=== PATIENT | male | born 1985 | race Caucasian/White ===

== ENCOUNTER 2020-09-03 19:59 | Emergency (ER) | payer MEDICAID, SELFPAY ==
[2020-09-03 20:01] VITALS: BP 158/85; PULSE 100; RESP 16; TEMP 36.6; O2SAT 96; BMI 24.3
--- NOTE | 2020-09-03 21:11 | ED_ITS ---
HPI - Extremity Problem General Chief complaint: Extremity Problem Stated complaint: Feet swelling Time Seen by Provider: 09/03/20 22:19 Source: patient Mode of arrival: ambulatory Limitations: no limitations History of Present Illness HPI Narrative: 35-year-old male on Suboxone presents with bilateral lower extremity edema to the ankles with Bilateral foot pain. He has been working 14-16 hour days and has been standing throughout the duration of his working hours, states that he has been working 6 or 7 days a week and has very few days off. He noted that the swelling started when his work picked up Requiring him to 6 or more days and 14-16 hours per day. He does report using alcohol excessively on a daily basis. MD Complaint: extremity pain Onset (ago): week(s) ( Several) Pain Consistency: constant Severity scale (1-10): 8 Quality: aching Radiation: none Relieving factors: elevation Exacerbating factors: walking Associated symptoms: denies other symptoms Related Data Previous Rx's Medication Instructions Recorded furosemide [Lasix] 20 mg PO DAILY PRN #30 tab 09/03/20 Allergies Allergy/AdvReac Type Severity Reaction Status Date / Time bee pollen [BEE STINGS] Allergy Unknown HIVES Unverified 06/14/20 19:27 Review of Systems Review of Systems: Constitutional: No Fever, No Chills ENT/Mouth: No Ear Pain, No Hoarseness, No sore throat Eyes: No Eye Pain, No Swelling, No Redness, No Foreign Body Cardiovascular: No Chest Pain, No SOB Respiratory: No Cough, No Dyspnea Gastrointestinal: No Nausea, No Vomiting, No Diarrhea, No abdominal Pain Genitourinary: No Dysuria, No Hematuria Musculoskeletal: positive joint pain, positive foot and ankle swelling, No Myalgias, No Joint Swelling Skin: No Skin lacerations, No rash Neuro: No Weakness, No Numbness, No Paresthesias, No Loss of Consciousness, No Dizziness, No Headache Psych: No Anxiety/Panic, No Depression Heme/Lymph: no easy bruising, no Lymphadenopathy Endocrine: No Polyuria, No Polydipsia Yes all other systems are reviewed and are negative [facility] Past Medical History Attestation statement: The following information was validated with the patient. Medical History Hepatitis C Social History Social History (Reviewed 09/04/20 @ 01:04 by JAMI Mohamud Smoking Status: Current every day smoker Smoked in Last 30 Days: Yes Use of substances other than those prescribed or required for medical reasons: No Advance Directives: No Advance Directives Information Provided: Yes Physical Exam Vital Signs: Vital Signs: Last Vital Signs Temp 98.5 F 09/03/20 22:54 Pulse 88 09/03/20 22:54 Resp 16 09/03/20 22:54 BP 158/92 H 09/03/20 22:54 Pulse Ox 97 09/03/20 22:54 Body Mass Index 24.3 Appearance: Alert. Oriented X3. No acute distress. Eyes: Pupils equal, round and reactive to light. ENT: Pharynx normal. Neck: Normal inspection. Neck supple. CVS: Normal heart rate and rhythm. Pulses normal. Respiratory: No respiratory distress. Breath sounds normal. Abdomen: Soft and nontender. Skin: Skin warm and dry. Normal skin color. Normal skin turgor. Extremities: bilateral foot and ankle edema with redness to the toes, brisk capillary refill, Pulses equal bilaterally, no calf pain. Neuro: No motor deficit. No sensory deficit. Course Course Course Narrative: 35-year-old male presents with bilateral foot and ankle swelling, states that he has long hours at work is standing for 14-16 hours per day usually 6 days a week. It is highly unlikely that this is CHF however we will order a BNP, this sounds like more of a dependent edema. He does have a significant alcohol addiction, will order LFTs, lipase, CBC and Chem 7. he does not have any calf pain, states that his last drink was just before arrival. Liver enzymes mildly elevated, detailed discussion regarding seeking detox well received by the patient. He is not ready to go at this time and will take the information and search for a bed when he is ready. CBC indicates mild anemia consistent with EtOH. BNP is 32, albumin 4.4. Swelling has decreased since he has elevated his feet while he was in the emergency department. Plan of care is charge home with [place] and follow up with primary care provider. We did provide information on obtaining primary care. He does understand that he does need follow-up especially if he continues drinking excessively. Patient is thankful. Patient verbalized understanding of and agrees to plan of care discharge home. MDM - Extremity (Nontraumatic) Differential Diagnosis Differential diagnosis: Likely gout and lower extremity edema Medical Records Attestation: I reviewed the patient's medical records. Lab Data Attestation: I reviewed the patient's lab results. Result diagrams: 09/03/20 21:54 09/03/20 21:54 Labs: Lab Results 09/03/20 09/03/20 09/03/20 Range/Units 21:54 21:54 21:54 WBC 7.9 (4.8-10.8) X10*3/uL RBC 3.66 L (4.60-5.80) X10*6/uL Hgb 12.8 L (14.0-18.0) g/dl Hct 37.1 L (42-52) % MCV 101.4 H (80-98) fL MCH 35.0 H (27.0-33.0) pg MCHC 34.5 (31.0-36.0) g/dl RDW 13.3 (11.0-16.0) % Plt Count 233 (160-400) X10*3/uL MPV 9.2 L (9.4-12.4) fL Immature Gran % (Auto) 0.3 (0.0-0.4) % Neut % (Auto) 54.9 (45-73) % Lymph % (Auto) 33.6 (20-40) % [place] % (Auto) 9.0 (2-11) % Eos % (Auto) 1.8 (0-4) % Baso % (Auto) 0.4 (0-2) % Lymph # (Auto) 2.6 (1.2-4.9) X10*3/uL [place] # (Auto) 0.7 (0.1-1.2) X10*3/uL Eos # (Auto) 0.1 (0.0-0.4) X10*3/uL Baso # (Auto) 0.0 (0.0-0.2) X10*3/uL Abs Immat Gran (auto) 0.02 (0.00-0.03) X10*3/uL Absolute Neuts (auto) 4.3 (2.0-8.3) X10*3/uL Absolute Nucleated RBC 0.000 (0.0-0.012) X10*3/uL Nucleated RBC % (auto) 0.0 (0.0-0.2) /100WBC Sodium 141 (135-145) mmol/L Potassium 4.1 (3.3-5.1) mmol/l Chloride 106 (96-108) mmol/L Carbon Dioxide 25 (22-29) mmol/L Anion Gap 14 (12-20) BUN 16 (9-16) mg/dL Creatinine 0.99 (0.5-1.4) mg/dL Estim Creat Clear Calc 118.7 Estimated GFR > 60 Random Glucose 76 (60-115) mg/dL Calcium 8.7 (8.4-10.2) mg/dL Magnesium 2.1 (1.6-2.6) mg/dL Total Bilirubin (0.0-1.0) mg/dL Direct Bilirubin (0.0-0.5) mg/dL AST (5-37) U/L ALT (0-40) U/L Alkaline Phosphatase (39-117) U/L B-Natriuretic Peptide 32 (<100) pg/mL Total Protein (6.5-8.0) g/dL Albumin (3.5-5.0) g/dL Lipase (8-78) U/L 09/03/20 Range/Units 21:54 WBC (4.8-10.8) X10*3/uL RBC (4.60-5.80) X10*6/uL Hgb (14.0-18.0) g/dl Hct (42-52) % MCV (80-98) fL MCH (27.0-33.0) pg MCHC (31.0-36.0) g/dl RDW (11.0-16.0) % Plt Count (160-400) X10*3/uL MPV (9.4-12.4) fL Immature Gran % (Auto) (0.0-0.4) % Neut % (Auto) (45-73) % Lymph % (Auto) (20-40) % [place] % (Auto) (2-11) % Eos % (Auto) (0-4) % Baso % (Auto) (0-2) % Lymph # (Auto) (1.2-4.9) X10*3/uL [place] # (Auto) (0.1-1.2) X10*3/uL Eos # (Auto) (0.0-0.4) X10*3/uL Baso # (Auto) (0.0-0.2) X10*3/uL Abs Immat Gran (auto) (0.00-0.03) X10*3/uL Absolute Neuts (auto) (2.0-8.3) X10*3/uL Absolute Nucleated RBC (0.0-0.012) X10*3/uL Nucleated RBC % (auto) (0.0-0.2) /100WBC Sodium (135-145) mmol/L Potassium (3.3-5.1) mmol/l Chloride (96-108) mmol/L Carbon Dioxide (22-29) mmol/L Anion Gap (12-20) BUN (9-16) mg/dL Creatinine (0.5-1.4) mg/dL Estim Creat Clear Calc Estimated GFR Random Glucose (60-115) mg/dL Calcium (8.4-10.2) mg/dL Magnesium (1.6-2.6) mg/dL Total Bilirubin 0.2 (0.0-1.0) mg/dL Direct Bilirubin < 0.2 (0.0-0.5) mg/dL AST 87 H (5-37) U/L ALT 108 H (0-40) U/L Alkaline Phosphatase 92 (39-117) U/L B-Natriuretic Peptide (<100) pg/mL Total Protein 7.6 (6.5-8.0) g/dL Albumin 4.4 (3.5-5.0) g/dL Lipase 100 H (8-78) U/L Discharge Plan Discharge Clinical Impression: Lower extremity edema Patient Disposition: Home, Self-Care Instructions: Leg Edema (ED) Additional Instructions: you were evaluated for bilateral foot swelling. This is suspected to be dependent edema. You do report being on her feet 14-16 hours a day on a daily basis. Please use rest and elevation to help decrease swelling. I prescribed Lasix to help you with water reduction. You must follow-up with a primary care physician for further follow through. Your liver enzymes are slightly elevated AST is 87 normal is 05-37, ALT is 108 normal is 0-40, lipase is 100 normal is 8 -78. these enzymes will get better if you stop drinking alcohol. Please consider detox. Thank you for choosing this emergency department for evaluation. Please follow-up with primary care physician as needed. Return to the emergency d epartment for any new, concerning, or worsening symptoms. Prescriptions: New furosemide [Lasix] 20 mg tablet 20 mg PO DAILY PRN (Reason: edema) Qty: 30 RF: 0 Interventions: ED Discharge Assessment Last Done: 09/03/20 23:07 Discharge Date/Time: 09/03/20 23:10
--- NOTE | 2020-09-03 21:22 | ECG_ITS ---
Test Reason : edema Blood Pressure : / mmHG Vent. Rate : 094 BPM Atrial Rate : 094 BPM P-R Int : 146 ms QRS Dur : 098 ms QT Int : 348 ms P-R-T Axes : 069 080 062 degrees QTc Int : 435 ms Normal sinus rhythm Normal ECG When compared with ECG of 07-SEP-2018 03:23, No significant change was found Referred By: Tiara [place] Electronically Signed By:CHINA HARMON
--- NOTE | 2020-09-03 21:22 | XR_ITS ---
EXAMINATION: XR CHEST CLINICAL INFORMATION: Peripheral edema COMPARISON: 09/07/2018 TECHNIQUE: Frontal view of the chest was obtained. FINDINGS: No significant abnormality is noted involving the heart, lungs, mediastinum, bony thorax or soft tissues. XR/XR chest 1V IMPRESSION: Unremarkable examination.
[2020-09-03 22:05] LABS: MANUAL DIFF FLAG NO
[2020-09-03 22:06] LABS: Basophils Percent Auto 0.4 % (0-2); Eosinophils Absolute Auto 0.1 X10*3/uL (0.0-0.4); Eosinophils Percent Auto 1.8 % (0-4); Hematocrit 37.1 % (42-52); Hemoglobin 12.8 g/dl (14.0-18.0); Imm Gran Abs Auto 0.02 X10*3/uL (0.00-0.03); Imm Gran Pct Auto 0.3 % (0.0-0.4); Lymphocytes Absolute Auto 2.6 X10*3/uL (1.2-4.9); Lymphocytes Percent Auto 33.6 % (20-40); Mean Corpuscular HGB Conc 34.5 g/dl (31.0-36.0); Mean Corpuscular Volume 101.4 fL (80-98); Mean Platelet Volume 9.2 fL (9.4-12.4); Monocytes Absolute Auto 0.7 X10*3/uL (0.1-1.2); Neutrophils Absolute Auto 4.3 X10*3/uL (2.0-8.3); Neutrophils Percent Auto 54.9 % (45-73); Platelet Count 233 X10*3/uL (160-400); Red Blood Count 3.66 X10*6/uL (4.60-5.80); Red Cell Distribution Width 13.3 % (11.0-16.0); White Blood Count 7.9 X10*3/uL (4.8-10.8)
[2020-09-03 22:33] LABS: Anion Gap 14 (12-20); Blood Urea Nitrogen 16 mg/dL (9-16); Calcium 8.7 mg/dL (8.4-10.2); Carbon Dioxide 25 mmol/L (22-29); Chloride 106 mmol/L (96-108); Creatinine Clr Calc Pharmacy 118.7; Estimated Glomerular Filt Rate > 60; Glucose Random 76 mg/dL (60-115); Magnesium 2.1 mg/dL (1.6-2.6); Potassium 4.1 mmol/l (3.3-5.1); Sodium 141 mmol/L (135-145)
[2020-09-03 22:37] LABS: Alanine Aminotransferase 108 U/L (0-40); Albumin Level 4.4 g/dL (3.5-5.0); Alkaline Phosphatase 92 U/L (39-117); Aspartate Amino Transferase 87 U/L (5-37); Bilirubin Direct < 0.2 mg/dL (0.0-0.5); Bilirubin Total 0.2 mg/dL (0.0-1.0); Lipase 100 U/L (8-78); Total Protein 7.6 g/dL (6.5-8.0)
[2020-09-03 22:40] LABS: B Type Natriuretic Peptide 32 pg/mL (<100)
[2020-09-03 22:54] VITALS: BP 158/92; PULSE 88; RESP 16; TEMP 36.9; O2SAT 97
== END 2020-09-03 23:10 | disposition home or self-care (01) ==
PROVIDERS: Nurse Practitioner Family; Emergency Provider Internal Medicine
DX: R60.0 Localized edema (principal); M79.672 Pain in left foot; M79.671 Pain in right foot; F11.20 Opioid dependence, uncomplicated; F17.200 Nicotine dependence, unspecified, uncomplicated
CPT/HCPCS: 36415; 71045; 80048; 80076; 83690; 83735; 83880; 85025; 93005; 99283; 99284

== ENCOUNTER 2021-01-17 12:06 | Emergency (ER) | payer OTHER, MEDICAID, SELFPAY ==
--- NOTE | ~2021-01-17 | XR_ITS ---
EXAMINATION: XR FOOT, RIGHT CLINICAL INFORMATION: Fall, trauma, pain COMPARISON: None TECHNIQUE: AP, lateral, and oblique views of the right foot. FINDINGS: There is old appearing healed fracture distal shaft third metatarsal with abundant osseous bridging. There is no visible acute fracture or dislocation or destructive process. Symptom marker pointed to the heel. The retrocalcaneal recess is preserved. The subtalar joint appears normal. There is no visible ankle capsular effusion. There is small posterior calcaneal spur. XR/XR foot RT min 3V IMPRESSION: 1. No acute fracture or dislocation. 2. Small posterior calcaneal spur. 3. Old healed fracture third metatarsal.
--- NOTE | ~2021-01-17 | XR_ITS ---
EXAMINATION: XR RIBS, LEFT CLINICAL INFORMATION: Fall, pain COMPARISON: Chest radiographs 09/03/2020, 09/07/2018 TECHNIQUE: Frontal view chest is performed along with 6 views of the left ribs for a total of 7 views. FINDINGS: There is subtle cortical step off suggestive of a hairline fracture involving the left anterior lateral 7th rib. This may be correlated with patient's symptoms and clinical exam. The remainder of the ribs appear intact. There is no destructive process. The lungs are clear. There is no pneumothorax or pleural reaction. No airspace consolidation or effusion. The heart is normal in size. The hilar and mediastinal contours are unremarkable. No free air beneath the diaphragms. XR/XR ribs LT min 3V w CXR1V IMPRESSION: 1. Suspicious for hairline fracture left anterolateral 7th rib. Recommend correlation with patient's symptoms and clinical exam. 2. Lungs clear. No pneumothorax, pleural reaction, infiltrate, or effusion.
[2021-01-17 12:30] VITALS: BP 161/88; PULSE 89; RESP 16; TEMP 37; O2SAT 97; BMI 25.7
--- NOTE | 2021-01-17 13:29 | ED_ITS ---
HPI - Fall General Chief Complaint: Fall Stated Complaint: fall Time Seen by Provider: 01/17/21 13:19 Source: patient Mode of arrival: ambulatory Limitations: no limitations History of Present Illness HPI Narrative: 35 y male here with multiple complaints s/p fall. patient tells me he was working and on a ladder ~10 feet above the ground when the ladder fell and he fell as well. Believes he might have twisted the right foot in the bottom sprung of the ladder. Now having pain and swelling to right foot. Also c/o left sided rib pain, abrasions to left upper arm. Denies SOB, chest pain. Denies head injury or LOC. MD complaint: fall Related Data Previous Rx's Medication Instructions Recorded furosemide [Lasix] 20 mg PO DAILY PRN #30 tab 09/03/20 cyclobenzaprine 10 mg PO TID PRN #10 tab 01/17/21 lidocaine [Lidoderm] 1 patch TOPICAL DAILY #15 ea 01/17/21 naproxen 500 mg PO BID PRN #20 tab 01/17/21 Allergies Allergy/AdvReac Type Severity Reaction Status Date / Time bee pollen [BEE STINGS] Allergy Unknown HIVES Unverified 06/14/20 19:27 Review of Systems Review of Systems: Yes all other systems are reviewed and are negative Constitutional: Constitutional: Reports no additional constitutional complaints, Denies body ache(s), Denies chills, Denies fever(s), Denies headache(s) and Denies weakness Eyes: Eyes: Reports no additional eye complaints and Denies change in vision ENT: Reports system reviewed and no additional complaints, except as documented, Denies dizziness, Denies headache(s), Denies nasal congestion, Denies nasal discharge and Denies neck pain Cardiovascular: Cardiovascular: Reports no additional cardiovascular complaints, Denies chest pain, Denies leg edema and Denies dyspnea Comments: +rib pain Respiratory: Respiratory: Reports no additional respiratory complaints, Denies cough and Denies dyspnea Gastrointestinal: Gastrointestinal: Reports no additional gastrointestinal c omplaints, Denies abdominal pain, Denies diarrhea, Denies nausea and Denies vomiting Genitourinary: Genitourinary: Denies urinary incontinence Musculoskeletal: Musculoskeletal: Reports no additional musculoskeletal complaints, Denies back pain, Reports arthralgias, Reports joint swelling, Denies neck pain, Denies numbness and Denies tingling Integumentary/Breasts: Skin/Breast: Reports system reviewed and no additional complaints, except as docu and Denies rash Comments: +abrasions Neurologic: Reports system reviewed and no additional complaints, except as documented, Denies Abnormal speech present, Denies dizziness, Denies headache(s), Denies numbness, Denies tingling and Denies weakness PMFSH Past Medical History Medical History Hepatitis C Social History Social History Smoking Status: Current every day smoker Advance Directives: Yes Advance Directives Information Provided: Yes Advance Directives on File: No Physical Exam Vital Signs: Vital Signs: Last Vital Signs Temp 98.6 F 01/17/21 12:30 Pulse 89 01/17/21 12:30 Resp 16 01/17/21 12:30 BP 161/88 H 01/17/21 12:30 Pulse Ox 97 01/17/21 12:30 Body Mass Index 25.7 Const: General: cooperative, healthy appearing, comfortable and no acute distress Orientation/consciousness: patient oriented x3 Limitations: no limitations HENMT: Head: Yes normal to inspection Ears: hearing grossly normal bilaterally General nose exam: Normal external nose present Face and sinus: Yes normal facial exam Mouth: Normal oral and palatal mucosa present Throat: Yes posterior oropharynx normal Eyes: General: appearance normal, both eyes and all related structures Pupils: Equal, round and reactive pupils present Neck: Neck: Yes normal visual inspection Chest: Other: bruising over left lateral ribs with tenderness. no crepitus or deformity. Chest palpation & inspection: normal inspection of the chest Resp: Effort & Inspection: normal respiratory effort Auscultation: clear to auscultation bilaterally Cardio: Rate: regular rate Rhythm: regular rhythm Peripheral pulses: Peripheral pulses 2+ throughout GI: Inspection: Yes normal to inspection Palpation (GI): Soft to palpation and nontender Auscultation: normal bowel sounds Back/Spine/Pelvis: Thoracic/Lumbar Spine: thoracic and lumbar spine normal to inspection Skin: Other: abrasions noted on the inner aspect of the left upper arm and left forearm General skin exam: no rashes or lesions noted Neuro: General: patient oriented x3, no focal motor deficits and normal sensation to monofilament Cranial nerves: Yes Equal, round and reactive pupils present Cognition (Neuro): normal cognition Speech: No Abnormal speech present Gait exam (Neuro): Normal gait present Motor exam (neuro): 5/5 motor strength present throughout Extrem: Other: swelling, ecchymosis and tenderness to the right lateral ankle. No posterior pain. negative hilario sign. FROM General: Yes normal to inspection Course Course Course Narrative: 35 yo male here with multiple complaints s/p fall at work. Will need x-rays. tetanus UTD. X-rays right foot are negative for bony abnormality. Likely sprain. To place post-op shoe and crutches for comfort. Left rib x-rays show a single rib fracture. Will need pain control. Abrasions to LUE, cleansed with NSB, antibiotic ointment and wrapped. FROM LUE with no bony tenderness so imaging deferred. Will refer to work connection. Reviewed worrisome signs/symptoms with patient and when to return to ED. comfortable with discharge home. Procedures Procedure Narrative Procedure Narrative: post-op shoe, crutches with ambulation. MDM - Fall Medical Records Attestation: I reviewed the patient's medical records. Lab Data Attestation: I reviewed the patient's lab results. Imaging Data left rib xray: Attestation: I personally reviewed and interpreted this imaging study as follows: Radiologist's impression: IMPRESSION: 1. Suspicious for hairline fracture left anterolateral 7th rib. Recommend correlation with patient's symptoms and clinical exam. 2. Lungs clear. No pneumothorax, pleural reaction, infiltrate, or effusion. foot xray: Attestation: I personally reviewed and interpreted this imaging study as follows: Radiologist's impression: IMPRESSION: 1. No acute fracture or dislocation. 2. Small posterior calcaneal spur. 3. Old healed fracture third metatarsal. Discharge Plan Discharge Clinical Impression: Abrasion Closed rib fracture Qualifiers: Encounter type: initial encounter Rib fracture type: single rib Laterality: left Qualified Code(s): S22.32XA - Fracture of one rib, left side, initial encounter for closed fracture Foot sprain Qualifiers: Encounter type: initial encounter Laterality: right Qualified Code(s): S93.601A - Unspecified sprain of right foot, initial encounter Patient Disposition: Home, Self-Care Instructions: Rib Fracture (ED), Foot Sprain (ED), Abrasion (ED) Additional Instructions: Ice to the area elevation limit weight bearing on the right foot follow-up with work connection [phone] Prescriptions: New cyclobenzaprine 10 mg tablet 10 mg PO TID PRN (Reason: muscle spasm) Qty: 10 RF: 0 naproxen 500 mg tablet 500 mg PO BID PRN (Reason: pain) Qty: 20 RF: 0 lidocaine [Lidoderm] 5 % adhesive patch,medicated 1 patch topical DAILY Qty: 15 RF: 0 No Action furosemide [Lasix] 20 mg tablet 20 mg PO DAILY PRN (Reason: edema) Qty: 30 RF: 0 Referrals: Physician,None [Primary Care Provider] - 2 days Stand Alone Forms: Work/School Release
== END 2021-01-17 14:05 | disposition home or self-care (01) ==
PROVIDERS: Emergency Provider Emergency Medicine
DX: S22.32XA Fracture of one rib, left side, initial encounter for closed fracture (principal); S93.601A Unspecified sprain of right foot, initial encounter; S40.812A Abrasion of left upper arm, initial encounter; W11.XXXA Fall on and from ladder, initial encounter; Y93.89 Activity, other specified; Y92.63 Factory as the place of occurrence of the external cause; Y99.0 Civilian activity done for income or pay
CPT/HCPCS: 71101; 73630; 99283

== ENCOUNTER 2021-04-01 20:54 | Emergency (ER) | payer MEDICAID, SELFPAY ==
[2021-04-01 21:00] VITALS: BP 150/80; PULSE 90; O2SAT 98
[2021-04-01 21:02] VITALS: BP 149/99; PULSE 89; RESP 18; TEMP 36.6; O2SAT 98; BMI 28.2
--- NOTE | 2021-04-01 21:30 | ED_ITS ---
HPI - Psych General Chief Complaint: Psychiatric Symptoms Stated Complaint: etoh crisis Time Seen by Provider: 04/01/21 21:22 Source: patient Mode of arrival: EMS Limitations: no limitations History of Present Illness HPI Narrative: patient comes by EMS, complaining of suicidal ideation with a plan, and alcohol intoxication. Patient states that he has a new job, he is being of her last minute and his previous job which was not the agreement, made the patient very upset, started drinking. Patient is supposed to take several medications to help his mood, however patient has not been taking it since approximately September. MD complaint: suicidal ideation and feels depressed Related Data Previous Rx's Medication Instructions Recorded furosemide [Lasix] 20 mg PO DAILY PRN #30 tab 09/03/20 cyclobenzaprine 10 mg PO TID PRN #10 tab 01/17/21 lidocaine [Lidoderm] 1 patch TOPICAL DAILY #15 ea 01/17/21 naproxen 500 mg PO BID PRN #20 tab 01/17/21 Allergies Allergy/AdvReac Type Severity Reaction Status Date / Time bee pollen [BEE STINGS] Allergy Unknown HIVES Unverified 06/14/20 19:27 Review of Systems Review of Systems: Constitutional : No Weight loss, No Fever, No Chills, No Night Sweats, No Fatigue, No Malaise ENT/Mouth : No Hearing loss, No Ear Pain, No Nasal Congestion, No Sinus Pain, No Hoarseness, No sore throat, No Rhinorrhea, No Swallowing Difficulty Eyes: No Eye Pain, No Swelling, No Redness, No Foreign Body, No Discharge, No Vision Changes Cardiovascular : No Chest Pain, No SOB, No Dyspnea on Exertion, No Orthopnea, No Edema, No Palpitations Respiratory : No Cough, No Sputum, No Wheezing, No Smoke Exposure, No Dyspnea Gastrointestinal : No Nausea, No Vomiting, No Diarrhea, No Constipation, No abdominal Pain, No Hematochezia, No Melena Genitourinary : no irregular bleeding, No Dysuria, No Urinary Frequency, No Hematuria, No Urinary Incontinence, No Urgency, No Flank Pain, No Urinary Flow Changes, No Hesitancy Musculoskeletal : No joint pain, No Myalgias, No Joint Swelling Skin : No Skin Lesions, No rash Neuro : No Weakness, No Numbness, No Paresthesias, No Loss of Consciousness, No Dizziness, No Headache Psych : Complaining of depression, vague suicidal ideation, stressed by new job with lower income Heme/Lymph: No Bruising, No Bleeding,No Lymphadenopathy Endocrine : No Polyuria, No Polydipsia, No Temperature Intolerance [facility] Past Medical History Medical History Hepatitis C Social History Social History Advance Directives: No Advance Directives Information Provided: Yes Physical Exam Vital Signs: Vital Signs: Last Vital Signs Temp 97.9 F 04/01/21 21:02 Pulse 89 04/01/21 21:02 Resp 18 04/01/21 21:02 BP 149/99 H 04/01/21 21:02 Pulse Ox 98 04/01/21 21:02 Body Mass Index 28.2 Appearance: Alert. Oriented X3. No acute distress. seems intoxicated, calm and cooperative Eyes: Pupils equal, round and reactive to light. ENT: Pharynx normal. Neck: Normal inspection. Neck supple. No lymph nodes noted. No crepitus CVS: Normal heart rate and rhythm. Pulses normal. Normal S1 and S2 Respiratory: No respiratory distress. Breath sounds normal. No Wheezing. No rales Abdomen: Soft and nontender. No rigidity. No distention. Skin: Skin warm and dry. Normal skin color. Normal skin turgor. Extremities: No lower extremity edema. No Lacerations. No Rash Neuro: Oriented X 3. No motor deficit. No sensory deficit. Moving all extermities. No slurred speech. Course Course Course Narrative: labs are pending, then [facility] please see the patient. At this time, patient is intoxicated but stable. Discharge Plan Discharge Prescriptions: No Action cyclobenzaprine 10 mg tablet 10 mg PO TID PRN (Reason: muscle spasm) Qty: 10 RF: 0 naproxen 500 mg tablet 500 mg PO BID PRN (Reason: pain) Qty: 20 RF: 0 lidocaine [Lidoderm] 5 % adhesive patch,medicated 1 patch topical DAILY Qty: 15 RF: 0 furosemide [Lasix] 20 mg tablet 20 mg PO DAILY PRN (Reason: edema) Qty: 30 RF: 0
[2021-04-01 21:49] LABS: MANUAL DIFF FLAG NO
[2021-04-01 21:51] LABS: Basophils Percent Auto 0.4 % (0-2); Eosinophils Absolute Auto 0.2 X10*3/uL (0.0-0.4); Eosinophils Percent Auto 3.1 % (0-4); Hematocrit 39.2 % (42-52); Hemoglobin 13.6 g/dl (14.0-18.0); Imm Gran Abs Auto 0.02 X10*3/uL (0.00-0.03); Imm Gran Pct Auto 0.3 % (0.0-0.4); Lymphocytes Absolute Auto 3.7 X10*3/uL (1.2-4.9); Lymphocytes Percent Auto 50.1 % (20-40); Mean Corpuscular HGB Conc 34.7 g/dl (31.0-36.0); Mean Corpuscular Hemoglobin 32.4 pg (27.0-33.0); Mean Corpuscular Volume 93.3 fL (80-98); Mean Platelet Volume 9.1 fL (9.4-12.4); Monocytes Absolute Auto 0.5 X10*3/uL (0.1-1.2); Monocytes Percent Auto 7.2 % (2-11); Neutrophils Absolute Auto 2.9 X10*3/uL (2.0-8.3); Neutrophils Percent Auto 38.9 % (45-73); Platelet Count 271 X10*3/uL (160-400); Red Cell Distribution Width 13.2 % (11.0-16.0); White Blood Count 7.5 X10*3/uL (4.8-10.8)
[2021-04-01 22:03] LABS: COVID-19 Test Negative (Negative)
[2021-04-01 22:20] LABS: Ethanol 358 mg/dL
[2021-04-01 22:22] LABS: Alanine Aminotransferase 85 U/L (0-40); Albumin Level 4.3 g/dL (3.5-5.0); Alkaline Phosphatase 102 U/L (39-117); Anion Gap 16 (12-20); Aspartate Amino Transferase 84 U/L (5-37); Bilirubin Direct < 0.2 mg/dL (0.0-0.5); Bilirubin Total 0.4 mg/dL (0.0-1.0); Blood Urea Nitrogen 12 mg/dL (9-16); Calcium 8.9 mg/dL (8.4-10.2); Carbon Dioxide 25 mmol/L (22-29); Chloride 107 mmol/L (96-108); Estimated Glomerular Filt Rate > 60; Glucose Random 91 mg/dL (60-115); Magnesium 2.2 mg/dL (1.6-2.6); Sodium 144 mmol/L (135-145); Total Protein 7.5 g/dL (6.5-8.0)
[2021-04-01 22:22] LABS: Amphetamine Screen Urine Not Detected (Not Detect); Barbiturates, Urine Not Detected (Not Detect); Benzodiazepines Screen Urine Not Detected (Not Detect); Cannabinoid Screen Urine POSITIVE (Not Detect); Cocaine Screen Urine Not Detected (Not Detect); Opiate Screen Urine Not Detected (Not Detect); Phencyclidine Screen Urine Not Detected (Not Detect)
--- NOTE | 2021-04-02 00:13 | PC.NURSE ---
Patient appears sleeping at this time, no distress observed/reported, [facility] referral completed via smart-sheet, overnight [facility] clinician Adelina called, confirmed receipt of referral, [place] was made aware patient's BAL level, will continue to monitor.
--- NOTE | 2021-04-02 06:39 | PC.NURSE ---
Patient slept through the night, patient was up once made a phone call to his and asked his disposition, patient was informed that he needs to see [facility] clinician in the morning for assessment and disposition will be decided then, denied distress, will continue to monitor.
[2021-04-02 08:34] VITALS: BP 126/71; PULSE 77; RESP 16; TEMP 36.8; O2SAT 96
--- NOTE | 2021-04-02 10:12 | PC.NURSE ---
Pt sitting in room behind nursing station watching TV. No sign of distress at this time. Respirations even/unlabored bilaterally.
[2021-04-02] MEDS: Buprenorphine/Naloxone 8/2 mg FILM 1 FILM SUBLINGUAL (10:31)
[2021-04-02 12:01] VITALS: BP 141/92; PULSE 82; RESP 18; TEMP 37.1; O2SAT 97
--- NOTE | 2021-04-02 14:06 | MHC.CARE ---
This 36 year-old man who came to [facility] last night by ambulance with reported suicidal ideation, his BAL was 358 at 9:45 pm. CARE Team met with him following medical clearance, he denied suicidal ideation and spoke honestly about his alcohol use. Patient stated that he was upset about a change in his employment contract and got a case of the, Fk-its, and starting drinking 1 ? weeks ago breaking 30+ days of sobriety then quit his job on Thursday. Unable to recall the details of last night due to a black out but believes that he called 911 himself. At this time patient is requesting discharge home, does not want referral to detox although he is likely to have withdrawal symptoms, said that he will definitely drink when he leaves here. Patient lives with his girlfriend of nine years, no children, housing stable currently. He has a history of psychiatric admissions, last several years ago. Was prescribed psychiatric medications one month ago through the [facility] where he sees a counselor but has not taken the medications yet. Recommended that he check in with the MD before he restarts. Call to patient's girlfriend, Tiffany ([phone]), she has no concern about patient's mental health when sober but when intoxicated she stays close to him because his judgment becomes so impaired she worries he may be at risk for intentional or unintentional self-harm. She reported that she and his family are discussing a [address] and will be pursuing one. Provided her with some resources for her own support. Has no objections to him discharging and will pick him up when ready. Patient was referred to Alcoholic Counselor. Disposition to discharge was discussed with providers.
== END 2021-04-02 13:55 | disposition home or self-care (01) ==
PROVIDERS: Nurse Practitioner Family; Emergency Provider Emergency Medicine
DX: F10.129 Alcohol abuse with intoxication, unspecified (principal); Y90.9 Presence of alcohol in blood, level not specified; R45.851 Suicidal ideations; Z91.14 Patient's other noncompliance with medication regimen; Z20.822 Contact with and (suspected) exposure to COVID-19
CPT/HCPCS: 36415; 80048; 80076; 80307; 82077; 83735; 85025; 87635; 99284

== ENCOUNTER 2021-08-05 08:16 | Outpatient (REF) | payer MEDICAID, SELFPAY ==
[2021-08-05 08:43] LABS: COVID-19 Test Positive (Negative)
== END 2021-08-05 08:17 | disposition home or self-care (01) ==
LOC: HO.LAB 08:16
PROVIDERS: Visit Provider Internal Medicine
DX: Z20.822 Contact with and (suspected) exposure to COVID-19 (principal)
CPT/HCPCS: 36415; 87635; C9803

== ENCOUNTER 2021-08-16 09:21 | Outpatient (REF) | payer MEDICAID, SELFPAY ==
[2021-08-16 10:13] LABS: COVID-19 Test Negative (Negative)
== END 2021-08-16 09:22 | disposition home or self-care (01) ==
LOC: HO.LAB 09:21
PROVIDERS: Visit Provider Internal Medicine
DX: Z20.822 Contact with and (suspected) exposure to COVID-19 (principal)
CPT/HCPCS: 36415; 87635; C9803

== ENCOUNTER 2023-03-14 13:02 | Emergency (ER) | payer OTHER, SELFPAY ==
--- NOTE | ~2023-03-14 | CT_ITS ---
EXAMINATION: CT ANGIOGRAM HEAD CT ANGIOGRAM NECK CLINICAL INFORMATION: Worst headache of life, family history of aneurysms COMPARISON: None. TECHNIQUE: Initial noncontrast dressmaker garment fitter imaging of the head and neck was performed. Noncontrast head CT was also performed. Test bolus sequences followed by intravenous administration 70 mL of Omnipaque 350. Helical imaging was performed in the axial plane from the aortic arch to the skull vertex. Delayed postcontrast imaging of the head was also performed. The data was processed at the reliability technologist's workstation for generation of MIP sequences. Angled MIPs and volume rendered reformatted images were also generated at an offline 3D workstation. Stenoses are assessed in accordance with Cam et al. Quantification of Carotid Stenosis on CT Angiography. AJR 2006. 27(1):13-19. [address] CT examination was performed using dose optimization techniques as appropriate, variously including the following: *Automated exposure control *Adjustment of mA and/or kV according to patient size (this includes techniques or standardized protocols for targeted exams where dose is matched to indication/reason for exam; i.e. extremities or head) *Use of iterative reconstruction technique DLP: 2309 mGy-cm FINDINGS: CT HEAD: The ventricles and sulci are normal in size and configuration without significant volume loss or hydrocephalus. There is no abnormal attenuation within the brain parenchyma. No territorial loss of camp-white differentiation. No acute intracranial hemorrhage or extra-axial fluid collection. No mass lesion, significant mass effect, or herniation pattern. No pathologic intra-axial enhancement or regional oligemia. The orbits are grossly normal. Paranasal sinuses and mastoid air cells are well aerated. There is dehiscence of the distal cavernous/supraclinoid carotid canals into the sphenoid sinuses. High riding right jugular bulb and thinning of the right jugular plate for which dehiscence into the hypotympanum is not excluded which can be correlated clinically for signs of right-sided pulsatile tinnitus. CTA HEAD: No hemodynamically significant stenosis or occlusion in the anterior or posterior circulation. Stricture origin of the right posterior inferior cerebellar artery. No aneurysms and no high flow vascular malformations. Timing of the contrast bolus allows assessment of the major dural venous sinuses, which all opacify normally CTA NECK: Ectasia of the ascending aorta up to 4.1 cm. Classic 3 vessel branching pattern of the aortic arch. Origins of the great vessels are widely patent. The common carotid arteries are widely patent. There is mild eccentric fibrofatty plaque and luminal irregularity of the distal right greater than left common carotid arteries/carotid bifurcations without luminal narrowing of the internal carotid artery origins with normal opacification along the remainder of their cervical segments. Eccentric periventricular plaque mildly narrows the left external carotid artery origin. The vertebral arteries are codominant The vertebral artery ostia are widely patent. Both vertebral arteries are widely patent throughout their extracranial cervical course. CT NECK: Carious left second mandibular premolar with prominent periapical lucency. Lobulated soft tissue along the base of tongue, most pronounced on the right projecting into the vallecula and contacting the right lingual surface of the epiglottis probably lingual tonsillar hyperplasia however can be correlated with direct inspection to exclude underlying lesion. Mild centrilobular and paraseptal emphysema with biapical pleural-parenchymal scarring. CT/CT angio head neck IMPRESSION: 1. No acute intracranial findings. Specifically, no aneurysmal distribution subarachnoid hemorrhage. 2. No acute arterial occlusion or hemodynamically significant stenosis within the head or neck. No intracranial saccular aneurysm. 3. Ectasia of the ascending aorta up to 4.1 cm. 4. High riding right jugular bulb and thinning of the right jugular plate for which dehiscence into the hypotympanum is not excluded and can be correlated clinically for signs of right-sided pulsatile tinnitus. 5. Carious left second mandibular premolar with prominent periapical lucency. 6. Suspected lingual tonsillar hyperplasia, more pronounced along the right base of tongue contacting the ventral surface of the epiglottis, which can be correlated with direct inspection to exclude underlying mucosal lesion.
[2023-03-14 13:05] VITALS: BP 138/97; PULSE 91; RESP 16; TEMP 36.6; O2SAT 100; BMI 24.0
--- NOTE | 2023-03-14 13:08 | ED.GENADULT ---
HPI - General Adult General Chief complaint: General Medical Stated complaint: Headache L Side Blurred Vision Time Seen by Provider: 03/14/23 13:20 Related Data Home Medications ?Medication ?Instructions ?Recorded ?Confirmed acamprosate 333 mg tablet,delayed 2 tab PO TID 04/01/21 04/01/21 release buprenorphine 8 mg-naloxone 2 mg 1 strip sublingual DAILY 04/01/21 04/01/21 sublingual film (Suboxone) clonidine HCl 0.2 mg tablet 1 tab PO BEDTIME PRN Anxiety 04/01/21 04/01/21 fluoxetine 10 mg capsule 2 cap PO DAILY 04/01/21 04/01/21 hydroxyzine HCl 25 mg tablet 1 tab PO TID PRN anxiety 04/01/21 04/01/21 Previous Rx's ?Medication ?Instructions ?Recorded yojilehbbf-iessrxlumghok-eqfeffsc 1 cap PO Q8H PRN prn headache #12 03/14/23 50 mg-300 mg-40 mg capsule caps (Fioricet) Allergies Allergy/AdvReac Type Severity Reaction Status Date / Time bee pollen [BEE STINGS] Allergy Intermediate HIVES Verified 03/27/24 15:10 shellfish derived Allergy Intermediate Hives Verified 03/27/24 15:10 [facility] Past Medical History Medical History Hepatitis C Social History Social History Alcohol intake: former Substance Use Type: Marijuana Advance Directives: No Advance Directives Information Provided: Yes Do you have a plan to hurt others: No Plan Physical Exam ED Vital Signs: BMI result Body Mass Index 24.0 Course Course Course Narrative: This is an RME: Additional HPI, ROS, PE not included below will be deferred to primary provider. Patient presents with pressure behind left eye, woke up with worst headache of life . Reports waking up with changes in vision of left eye. Has a family history of aneurysms Medications Administered Discontinued Medications Generic Name Dose Route Start Last Admin Trade Name Freq PRN Reason Stop Dose Admin Iohexol 100 ml 03/14/23 14:12 03/14/23 14:13 Iohexol 350 Mg/Ml 100 Ml Infus..Btl IV 03/14/23 14:13 70 ml ONCE ONE Administration Ketorolac Tromethamine 30 mg 03/14/23 15:11 03/14/23 15:25 Ketorolac Tromethamine 30 Mg/Ml Vial IVPUSH 03/14/23 15:12 30 mg ONCE ONE Administration Medical Decision Making Lab Data 03/14/23 13:39 03/14/23 13:39 Labs: Lab Results 03/14/23 03/14/23 Range/Units 13:39 14:31 WBC 6.7 (4.8-10.8) X10*3/uL RBC 4.35 L (4.60-5.80) X10*6/uL Hgb 13.6 L (14.0-18.0) g/dl Hct 40.2 L (42.0-52.0) % MCV 92.4 (80.0-98.0) fL MCH 31.3 (27.0-33.0) pg MCHC 33.8 (31.0-36.0) g/dl RDW 13.6 (11.0-16.0) % Plt Count 299 (160-400) X10*3/uL MPV 8.6 L (9.4-12.4) fL Immature Gran % (Auto) 0.3 (0.0-0.4) % Neut % (Auto) 56.7 (45-73) % Lymph % (Auto) 35.2 (20-40) % [place] % (Auto) 5.4 (2-11) % Eos % (Auto) 2.1 (0-4) % Baso % (Auto) 0.3 (0-2) % Lymph # (Auto) 2.4 (1.2-4.9) X10*3/uL [place] # (Auto) 0.4 (0.1-1.2) X10*3/uL Eos # (Auto) 0.1 (0.0-0.4) X10*3/uL Baso # (Auto) 0.0 (0.0-0.2) X10*3/uL Abs Immat Gran (auto) 0.02 (0.00-0.03) X10*3/uL Absolute Neuts (auto) 3.8 (2.0-8.3) x10*3/uL Absolute Nucleated RBC 0.000 (0.0-0.012) X10*3/uL Nucleated RBC % (auto) 0.0 (0.0-0.2) /100WBC PT 10.1 (10.0-13.1) SEC INR 0.9 (0.9-1.1) Sodium 143 (135-145) mmol/L Potassium 4.6 (3.3-5.1) mmol/L Chloride 107 (96-108) mmol/L Carbon Dioxide 27 (22-29) mmol/L Anion Gap 14 (12-20) BUN 12 (9-16) mg/dL Creatinine 0.81 (0.5-1.4) mg/dL Estim Creat Clear Calc 140.9 Estimated GFR > 60 Random Glucose 100 (60-115) mg/dL Calcium 10.2 D (8.4-10.2) mg/dL Magnesium 2.3 (1.6-2.6) mg/dL Total Bilirubin 0.6 (0.0-1.0) mg/dL AST 23 (5-37) U/L ALT 33 (0-40) U/L Alkaline Phosphatase 77 (39-117) U/L Total Protein 8.1 H (6.5-8.0) g/dL Albumin 4.6 (3.5-5.0) g/dL Urine Color Yellow Urine Appearance Clear Urine pH 7.5 (5.0-9.0) Ur Specific [place] 1.015 (1.005-1.025) Urine Protein Negative (Neg-Trace) mg/dL Urine Glucose (UA) Negative (Negative) mg/dL Urine Ketones Negative (Negative) mg/dL Urine Blood Negative (Negative) Urine Nitrite Negative (Negative) Ur Leukocyte Esterase Negative (Negative) Discharge Plan Discharge Clinical Impression: Headache Patient Disposition: Home, Self-Care Instructions: General Headache (ED) Additional Instructions: Your lab work and imaging are reassuring. You decline LP at this time. Please return to the ED if symptoms worsen. Please follow up with your PCP. We will provide you with contact information for neurology follow up. Prescriptions: New bstjvzvilh-txuvbkslecyob-wxgd [Fioricet] 50-300-40 mg capsule 1 cap PO Q8H PRN (Reason: prn headache) Qty: 12 0RF No Action clonidine HCl 0.2 mg tablet 1 tab PO BEDTIME PRN (Reason: Anxiety) fluoxetine 10 mg capsule 2 cap PO DAILY hydroxyzine HCl 25 mg tablet 1 tab PO TID PRN (Reason: anxiety) acamprosate 333 mg tablet,delayed release (DR/EC) 2 tab PO TID buprenorphine-naloxone [Suboxone] 8-2 mg film 1 strip sublingual DAILY Referrals: Erica Juarez MD [Physician] - 3 days Interventions: ED Discharge Assessment Last Done: 03/14/23 15:50 Discharge Date/Time: 03/14/23 15:52 Print Language: Portuguese
--- NOTE | 2023-03-14 13:20 | ED.HA ---
HPI - Headache General Chief Complaint: General Medical Stated Complaint: Headache L Side Blurred Vision Time Seen by Provider: 03/14/23 13:20 Source: patient Mode of arrival: ambulatory Limitations: no limitations History of Present Illness HPI Narrative: 38 year old male with history signficiant for opioid use disorder on suboxone and etoh use disorder (recovering) presents today with complaint of a left sided headache. Patient reports seeing shooting stars in his left eye yesterday followed by blurred vision that resolved last night. He reports waking up at 0400 this morning with a left sided headache characterized by pressure behind his left eye along with nausea without vomiting. This has since subsided and the patient reports feeling better. His girlfriend at bedside states that the patient complains of headaches daily\. His mother and maternal grandmother both from brain aneurysms. Denies fever, neck pain/ stiffness, vomiting. Related Data Home Medications Medication Instructions Recorded Confirmed acamprosate 333 mg tablet,delayed 2 tab PO TID 04/01/21 04/01/21 release buprenorphine 8 mg-naloxone 2 mg 1 strip sublingual DAILY 04/01/21 04/01/21 sublingual film (Suboxone) clonidine HCl 0.2 mg tablet 1 tab PO BEDTIME PRN Anxiety 04/01/21 04/01/21 fluoxetine 10 mg capsule 2 cap PO DAILY 04/01/21 04/01/21 hydroxyzine HCl 25 mg tablet 1 tab PO TID PRN anxiety 04/01/21 04/01/21 Previous Rx's Medication Instructions Recorded zqtfjabxug-zyxipfcwkfyhu-tgiykarp 1 cap PO Q8H PRN prn headache #12 03/14/23 50 mg-300 mg-40 mg capsule caps (Fioricet) Allergies Allergy/AdvReac Type Severity Reaction Status Date / Time bee pollen [BEE STINGS] Allergy Unknown HIVES Verified 03/14/23 13:04 Review of Systems Constitutional: Constitutional: Denies chills, Denies fever(s) and Reports headache(s) Eyes: Eyes: Denies blind spots, Denies blurry vision, Denies change in vision and Denies loss of vision Comments: shooting stars reported in his L eye yesterday which have resolved. ENT: Reports Normal hearing present, Reports headache(s) and Denies neck pain Musculoskeletal: Musculoskeletal: Denies neck pain Neurologic: Reports Normal hearing present, Reports headache(s) and Denies loss of vision [facility] Past Medical History Attestation statement: The following information was validated with the patient. [facility] Narrative: opioid use disorder, etoh use disorder (recovering) Source: old records reviewed Medical History Hepatitis C Social History Social History Alcohol intake: former Smoked in Last 30 Days: Yes Use of substances other than those prescribed or required for medical reasons: Yes Substance Use Type: Marijuana Substance Use Type Other:: benzo Substance Use Frequency: Monthly Advance Directives: No Advance Directives Information Provided: Yes Physical Exam Vital Signs: Vital Signs: Last Vital Signs Temp 98.4 F 03/14/23 13:21 Pulse 107 H 03/14/23 14:00 Resp 18 03/14/23 14:00 BP 137/92 H 03/14/23 14:00 Pulse Ox 98 03/14/23 14:00 O2 Del Method Room Air 03/14/23 14:00 BMI result Body Mass Index 24.0 Const: General: cooperative, healthy appearing, comfortable, no acute distress, alert and awake Nutritional Appearance: average body habitus Orientation/consciousness: oriented to person, oriented to place and oriented to time Limitations: no limitations HEENT: Head: Yes normal to inspection Face and sinus: Yes normal facial exam Eyes: General: appearance normal, both eyes and all related structures Pupils: Equal, round and reactive pupils present, Pupils normal by confrontation, pupils equal, not dilated, not fixed and regular EOM: EOMs intact bilaterally Direct Ophthalmoscopy: no photophobia Neck: Neck: Yes full ROM, Yes no meningeal signs and Yes supple Resp: Effort & Inspection: normal respiratory effort Auscultation: clear to auscultation bilaterally Cardio: Rate: regular rate Rhythm: regular rhythm Heart sounds: S1 normal heart sound present, S2 normal heart sound present, no gallops, no murmurs and no rubs GI: Palpation (GI): Soft to palpation, not firm, nontender, no guarding and not rigid Neuro: General: oriented to person, oriented to place, oriented to time and no meningeal signs Cranial nerves: Yes CN's II-XII intact bilaterally, Yes Facial sensation intact/muscles of mastication intact, Yes Equal, round and reactive pupils present, Yes Bilaterally intact EOM present, Yes Nystagmus not present, Yes Normal facial strength present, Yes Midline tongue present, Yes Normal hearing present and Yes Ability to bilaterally rotate head present Cognition (Neuro): normal cognition Gait exam (Neuro): Normal gait present Motor exam (neuro): 5/5 motor strength present throughout Course Reevaluation(s) Reevaluation #1: Patient remains stable, comfortable, no acute distress. CTA of head discussed with patient and his significant other. No aneurysm. Shared decision making regarding LP, patient elected not to go ahead with the LP at this time. [place] headache unlikely however patient declines LP at this time. Time: 15:11 Medications Administered Discontinued Medications Generic Name Dose Route Start Last Admin Trade Name Prashantq PRN Reason Stop Dose Admin Iohexol 100 ml 03/14/23 14:12 03/14/23 14:13 Iohexol 350 Mg/Ml 100 Ml Infus..Btl IV 03/14/23 14:13 70 ml ONCE ONE Administration Ketorolac Tromethamine 30 mg 03/14/23 15:11 03/14/23 15:25 Ketorolac Tromethamine 30 Mg/Ml Vial IVPUSH 03/14/23 15:12 30 mg ONCE ONE Administration Medical Decision Making Medical Decision Making [facility] Narrative: 38 year old male presenting with acute onset headache which woke him from his sleep at 0400 this morning. Patient states his left-sided headache has now subsided and he is no longer nauseous. Physical exam within normal limits, no meningeal signs, CN 2-12 intact. Differential Diagnosis Differential Diagnoses: The differential diagnosis associated with the presentation includes Migraine headache, chronic headache Due to patients family history of aneurysm, this will be ruled out with CT head. Unlikely meningitis as patient is afebrile without meningeal signs. Lab Data [facility] Lab Attestation statement: I reviewed the patient's lab results. 03/14/23 13:39 03/14/23 13:39 Labs: Lab Results 03/14/23 03/14/23 03/14/23 Range/Units 13:39 13:39 13:39 WBC 6.7 (4.8-10.8) X10*3/uL RBC 4.35 L (4.60-5.80) X10*6/uL Hgb 13.6 L (14.0-18.0) g/dl Hct 40.2 L (42.0-52.0) % MCV 92.4 (80.0-98.0) fL MCH 31.3 (27.0-33.0) pg MCHC 33.8 (31.0-36.0) g/dl RDW 13.6 (11.0-16.0) % Plt Count 299 (160-400) X10*3/uL MPV 8.6 L (9.4-12.4) fL Immature Gran % (Auto) 0.3 (0.0-0.4) % Neut % (Auto) 56.7 (45-73) % Lymph % (Auto) 35.2 (20-40) % [place] % (Auto) 5.4 (2-11) % Eos % (Auto) 2.1 (0-4) % Baso % (Auto) 0.3 (0-2) % Lymph # (Auto) 2.4 (1.2-4.9) X10*3/uL [place] # (Auto) 0.4 (0.1-1.2) X10*3/uL Eos # (Auto) 0.1 (0.0-0.4) X10*3/uL Baso # (Auto) 0.0 (0.0-0.2) X10*3/uL Abs Immat Gran (auto) 0.02 (0.00-0.03) X10*3/uL Absolute Neuts (auto) 3.8 (2.0-8.3) x10*3/uL Absolute Nucleated RBC 0.000 (0.0-0.012) X10*3/uL Nucleated RBC % (auto) 0.0 (0.0-0.2) /100WBC PT 10.1 (10.0-13.1) SEC INR 0.9 (0.9-1.1) Sodium 143 (135-145) mmol/L Potassium 4.6 (3.3-5.1) mmol/L Chloride 107 (96-108) mmol/L Carbon Dioxide 27 (22-29) mmol/L Anion Gap 14 (12-20) BUN 12 (9-16) mg/dL Creatinine 0.81 (0.5-1.4) mg/dL Estim Creat Clear Calc 140.9 Estimated GFR > 60 Random Glucose 100 (60-115) mg/dL Calcium 10.2 D (8.4-10.2) mg/dL Magnesium 2.3 (1.6-2.6) mg/dL Total Bilirubin 0.6 (0.0-1.0) mg/dL AST 23 (5-37) U/L ALT 33 (0-40) U/L Alkaline Phosphatase 77 (39-117) U/L Total Protein 8.1 H (6.5-8.0) g/dL Albumin 4.6 (3.5-5.0) g/dL Urine Color Urine Appearance Urine pH (5.0-9.0) Ur Specific [place] (1.005-1.025) Urine Protein (Neg-Trace) mg/dL Urine Glucose (UA) (Negative) mg/dL Urine Ketones (Negative) mg/dL Urine Blood (Negative) Urine Nitrite (Negative) Ur Leukocyte Esterase (Negative) 03/14/23 Range/Units 14:31 WBC (4.8-10.8) X10*3/uL RBC (4.60-5.80) X10*6/uL Hgb (14.0-18.0) g/dl Hct (42.0-52.0) % MCV (80.0-98.0) fL MCH (27.0-33.0) pg MCHC (31.0-36.0) g/dl RDW (11.0-16.0) % Plt Count (160-400) X10*3/uL MPV (9.4-12.4) fL Immature Gran % (Auto) (0.0-0.4) % Neut % (Auto) (45-73) % Lymph % (Auto) (20-40) % [place] % (Auto) (2-11) % Eos % (Auto) (0-4) % Baso % (Auto) (0-2) % Lymph # (Auto) (1.2-4.9) X10*3/uL [place] # (Auto) (0.1-1.2) X10*3/uL Eos # (Auto) (0.0-0.4) X10*3/uL Baso # (Auto) (0.0-0.2) X10*3/uL Abs Immat Gran (auto) (0.00-0.03) X10*3/uL Absolute Neuts (auto) (2.0-8.3) x10*3/uL Absolute Nucleated RBC (0.0-0.012) X10*3/uL Nucleated RBC % (auto) (0.0-0.2) /100WBC PT (10.0-13.1) SEC INR (0.9-1.1) Sodium (135-145) mmol/L Potassium (3.3-5.1) mmol/L Chloride (96-108) mmol/L Carbon Dioxide (22-29) mmol/L Anion Gap (12-20) BUN (9-16) mg/dL Creatinine (0.5-1.4) mg/dL Estim Creat Clear Calc Estimated GFR Random Glucose (60-115) mg/dL Calcium (8.4-10.2) mg/dL Magnesium (1.6-2.6) mg/dL Total Bilirubin (0.0-1.0) mg/dL AST (5-37) U/L ALT (0-40) U/L Alkaline Phosphatase (39-117) U/L Total Protein (6.5-8.0) g/dL Albumin (3.5-5.0) g/dL Urine Color Yellow Urine Appearance Clear Urine pH 7.5 (5.0-9.0) Ur Specific [place] 1.015 (1.005-1.025) Urine Protein Negative (Neg-Trace) mg/dL Urine Glucose (UA) Negative (Negative) mg/dL Urine Ketones Negative (Negative) mg/dL Urine Blood Negative (Negative) Urine Nitrite Negative (Negative) Ur Leukocyte Esterase Negative (Negative) Independent Interpretation I performed an independent interpretation of an: CT Scan Interpretation: CTA reviwed personally. Radiology Impression Discussion of test interpretation with radiology: I have reviewed the radiologist's reading. Radiologist Impression: No evidence of aneurysm per radiologist. Independent Historian Clinical information obtained from an independent historian. History obtained from or confirmed by: Other (significant other.) Prescription Management I considered prescription management with: Pain Medication (fioricet) Chronic Conditions Patient?s care impacted by: Other (hep C, opioid use disorder, etoh use disorder) Discharge Plan Discharge Clinical Impression: Headache Patient Disposition: Home, Self-Care Instructions: General Headache (ED) Additional Instructions: Your lab work and imaging are reassuring. You decline LP at this time. Please return to the ED if symptoms worsen. Please follow up with your PCP. We will provide you with contact information for neurology follow up. Prescriptions: New ynmauiimya-pnckjxgiqxlou-rnhf [Fioricet] 50-300-40 mg capsule 1 cap PO Q8H PRN (Reason: prn headache) Qty: 12 0RF No Action clonidine HCl 0.2 mg tablet 1 tab PO BEDTIME PRN (Reason: Anxiety) fluoxetine 10 mg capsule 2 cap PO DAILY hydroxyzine HCl 25 mg tablet 1 tab PO TID PRN (Reason: anxiety) acamprosate 333 mg tablet,delayed release (DR/EC) 2 tab PO TID buprenorphine-naloxone [Suboxone] 8-2 mg film 1 strip sublingual DAILY Referrals: Erica Juarez MD [Physician] - 3 days
[2023-03-14 13:21] VITALS: BP 145/96; PULSE 112; RESP 18; TEMP 36.9; O2SAT 99
--- NOTE | 2023-03-14 13:30 | PC.NURSE ---
Alert and oriented. Was at work yesterday when all of the sudden he had a sharp shooting bright light in let eye. States it was the thickness of a few pieces of hair states light went away but it took about 4 hours before eye sight when back to normal. PERRLA. States woke up today with a headache but does have hx of almost daily headaches. States family hx of brain aneurysms, provider aware.
[2023-03-14 13:45] LABS: MANUAL DIFF FLAG NO
[2023-03-14 13:46] LABS: Basophils Percent Auto 0.3 % (0-2); Eosinophils Absolute Auto 0.1 X10*3/uL (0.0-0.4); Eosinophils Percent Auto 2.1 % (0-4); Hematocrit 40.2 % (42.0-52.0); Hemoglobin 13.6 g/dl (14.0-18.0); Imm Gran Abs Auto 0.02 X10*3/uL (0.00-0.03); Imm Gran Pct Auto 0.3 % (0.0-0.4); Lymphocytes Absolute Auto 2.4 X10*3/uL (1.2-4.9); Lymphocytes Percent Auto 35.2 % (20-40); Mean Corpuscular HGB Conc 33.8 g/dl (31.0-36.0); Mean Corpuscular Hemoglobin 31.3 pg (27.0-33.0); Mean Corpuscular Volume 92.4 fL (80.0-98.0); Mean Platelet Volume 8.6 fL (9.4-12.4); Monocytes Absolute Auto 0.4 X10*3/uL (0.1-1.2); Monocytes Percent Auto 5.4 % (2-11); Neutrophils Absolute Auto 3.8 x10*3/uL (2.0-8.3); Neutrophils Percent Auto 56.7 % (45-73); Platelet Count 299 X10*3/uL (160-400); Red Blood Count 4.35 X10*6/uL (4.60-5.80); Red Cell Distribution Width 13.6 % (11.0-16.0); White Blood Count 6.7 X10*3/uL (4.8-10.8)
[2023-03-14 13:54] LABS: INTERNATIONAL NORM RATIO 0.9 (0.9-1.1); Prothrombin Time 10.1 SEC (10.0-13.1)
[2023-03-14 14:00] VITALS: BP 137/92; PULSE 107; RESP 18; O2SAT 98
[2023-03-14 14:04] LABS: Alanine Aminotransferase 33 U/L (0-40); Albumin Level 4.6 g/dL (3.5-5.0); Alkaline Phosphatase 77 U/L (39-117); Anion Gap 14 (12-20); Aspartate Amino Transferase 23 U/L (5-37); Bilirubin Total 0.6 mg/dL (0.0-1.0); Blood Urea Nitrogen 12 mg/dL (9-16); Calcium 10.2 mg/dL (8.4-10.2); Carbon Dioxide 27 mmol/L (22-29); Chloride 107 mmol/L (96-108); Creatinine Clr Calc Pharmacy 140.9; Estimated Glomerular Filt Rate > 60; Glucose Random 100 mg/dL (60-115); Magnesium 2.3 mg/dL (1.6-2.6); Potassium 4.6 mmol/L (3.3-5.1); Sodium 143 mmol/L (135-145); Total Protein 8.1 g/dL (6.5-8.0)
[2023-03-14] MEDS: iohexoL 350 MG/ML 100 ML INFUS..BTL IV (14:13)
[2023-03-14 14:37] LABS: Appearance Urine Clear; Color Urine Yellow; Glucose Urine UA Negative (Negative); Leukocyte Esterase Urine Negative (Negative); Nitrite Urine Negative (Negative); PH 7.5 (5.0-9.0); Specific Gravity - Urine 1.015 (1.005-1.025); Urine Blood Negative (Negative); Urine Ketones Negative (Negative); Urine Protein Negative (Neg-Trace)
[2023-03-14] MEDS: Ketorolac Tromethamine 30 MG/ML VIAL IVPUSH (15:25)
--- NOTE | 2023-03-14 15:52 | PC.NURSE ---
Patient reports feeling much better. Discharge plan reviewed with patient and significant other, both verbalized understanding
== END 2023-03-14 15:52 | disposition home or self-care (01) ==
PROVIDERS: Physician Assistant; Emergency Provider Emergency Medicine
DX: R51.9 Headache, unspecified (principal); B19.20 Unspecified viral hepatitis C without hepatic coma; F12.90 Cannabis use, unspecified, uncomplicated; F11.20 Opioid dependence, uncomplicated; Z79.899 Other long term (current) drug therapy
CPT/HCPCS: 36415; 70496; 70498; 80053; 81003; 83735; 85025; 85610; 96374; 99284; J1885; Q9967

== ENCOUNTER 2024-03-27 14:22 | Emergency (ER) | payer SELFPAY ==
--- NOTE | ~2024-03-27 | XR_ITS ---
EXAMINATION: X-ray right ankle X-ray right foot CLINICAL INFORMATION: Injury, pain COMPARISON: X-ray 01/17/2021 TECHNIQUE: Ankle 2 views. Foot 2 views. FINDINGS: Ankle: No visible acute fracture or dislocation. Ankle mortise is maintained. Talar dome appears intact. Bony alignment is anatomic. Foot: Alignment is anatomic. Remote healed third metatarsal shaft fracture. No visible acute fracture or malalignment. Tarsometatarsal alignment is maintained. Os peroneum. Small posterior calcaneal spur. No abnormal soft tissue calcification. XR/XR foot RT 2V IMPRESSION: No radiographic evidence of acute fracture, malalignment or dislocation. If there are persistent symptoms, recommend follow-up imaging. Remote healed third metatarsal fracture.
--- NOTE | ~2024-03-27 | XR_ITS ---
EXAMINATION: X-ray right ankle X-ray right foot CLINICAL INFORMATION: Injury, pain COMPARISON: X-ray 01/17/2021 TECHNIQUE: Ankle 2 views. Foot 2 views. FINDINGS: Ankle: No visible acute fracture or dislocation. Ankle mortise is maintained. Talar dome appears intact. Bony alignment is anatomic. Foot: Alignment is anatomic. Remote healed third metatarsal shaft fracture. No visible acute fracture or malalignment. Tarsometatarsal alignment is maintained. Os peroneum. Small posterior calcaneal spur. No abnormal soft tissue calcification. XR/XR ankle RT 2V IMPRESSION: No radiographic evidence of acute fracture, malalignment or dislocation. If there are persistent symptoms, recommend follow-up imaging. Remote healed third metatarsal fracture.
[2024-03-27 15:06] VITALS: BP 136/100; PULSE 89; RESP 18; TEMP 36.6; O2SAT 100; BMI 23.7
--- NOTE | 2024-03-27 15:08 | ED.LOWEXIN ---
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 No numbness, tingling or weakness of the extremity. Having pain with WB Related Data Home Medications ?Medication ?Instructions ?Recorded ?Confirmed acamprosate 333 mg tablet,delayed 2 tab PO TID 04/01/21 04/01/21 release buprenorphine 8 mg-naloxone 2 mg 1 strip sublingual DAILY 04/01/21 04/01/21 sublingual film (Suboxone) clonidine HCl 0.2 mg tablet 1 tab PO BEDTIME PRN Anxiety 04/01/21 04/01/21 fluoxetine 10 mg capsule 2 cap PO DAILY 04/01/21 04/01/21 hydroxyzine HCl 25 mg tablet 1 tab PO TID PRN anxiety 04/01/21 04/01/21 Previous Rx's ?Medication ?Instructions ?Recorded wterfqrddm-dafcrbprfouvz-fmewbwfm 1 cap PO Q8H PRN prn headache #12 03/14/23 50 mg-300 mg-40 mg capsule caps (Fioricet) Allergies Allergy/AdvReac Type Severity Reaction Status Date / Time bee pollen [BEE STINGS] Allergy Intermediate HIVES Verified 03/27/24 15:10 shellfish derived Allergy Intermediate Hives Verified 03/27/24 15:10 Review of Systems Review of Systems: Yes all other systems are reviewed and are negative Constitutional: Constitutional: Reports no additional constitutional complaints, Denies body ache(s), Denies chills, Denies fever(s), Denies headache(s) and Denies weakness Eyes: Eyes: Reports no additional eye complaints and Denies change in vision ENT: Reports system reviewed and no additional complaints, except as documented, Denies dizziness, Denies headache(s), Denies nasal congestion, Denies nasal discharge and Denies neck pain Cardiovascular: Cardiovascular: Reports no additional cardiovascular complaints, Denies chest pain, Denies leg edema and Denies dyspnea Respiratory: Respiratory: Reports no additional respiratory complaints, Denies cough and Denies dyspnea Gastrointestinal: Gastrointestinal: Reports no additional gastrointestinal complaints, Denies abdominal pain, Denies diarrhea, Denies nausea and Denies vomiting Genitourinary: Genitourinary: Denies urinary incontinence Musculoskeletal: Musculoskeletal: Reports no additional musculoskeletal complaints, Denies back pain, Reports arthralgias, Reports joint swelling, Denies neck pain, Denies numbness and Denies tingling Integumentary/Breasts: Skin/Breast: Reports system reviewed and no additional complaints, except as docu and Denies rash Neurologic: Reports system reviewed and no additional complaints, except as documented, Denies Abnormal speech present, Denies dizziness, Denies headache(s), Denies numbness, Denies tingling and Denies weakness PMFSH Past Medical History Attestation statement: The following information was validated with the patient. Source: old records reviewed and nursing notes reviewed Medical History Hepatitis C Social History Social History Alcohol intake: former Substance Use Type: Marijuana Physical Exam Vital Signs: Vital Signs: Last Vital Signs Temp 97.9 F 03/27/24 15:06 Pulse 89 03/27/24 15:06 Resp 18 03/27/24 15:06 BP 136/100 H 03/27/24 15:06 Pulse Ox 100 03/27/24 15:06 O2 Del Method Room Air 03/27/24 15:06 BMI result Body Mass Index 23.7 Const: General: cooperative, healthy appearing, comfortable and no acute distress Orientation/consciousness: patient oriented x3 Limitations: no limitations HEENT: Head: Yes normal to inspection Ears: hearing grossly normal bilaterally General nose exam: Normal external nose present Face and sinus: Yes normal facial exam Mouth: Normal oral and palatal mucosa present Throat: Yes posterior oropharynx normal Eyes: General: appearance normal, both eyes and all related structures Pupils: Equal, round and reactive pupils present Neck: Neck: Yes normal visual inspection Chest: Chest palpation & inspection: normal inspection of the chest Resp: Effort & Inspection: normal respiratory effort Auscultation: clear to auscultation bilaterally Cardio: Rate: regular rate Rhythm: regular rhythm Peripheral pulses: Peripheral pulses 2+ throughout GI: Inspection: Yes normal to inspection Palpation (GI): Soft to palpation and nontender Auscultation: normal bowel sounds Back/Spine/Pelvis: Thoracic/Lumbar Spine: thoracic and lumbar spine normal to inspection Skin: General skin exam: no rashes or lesions noted Neuro: General: patient oriented x3, no focal motor deficits and normal sensation to monofilament Cranial nerves: Yes Equal, round and reactive pupils present Cognition (Neuro): normal cognition Speech: No Abnormal speech present Gait exam (Neuro): Normal gait present Motor exam (neuro): 5/5 motor strength present throughout Extrem: Other: Over the right medial heel there is some tenderness and swelling Full active/passive ROM over the ankle, foot and lower leg with no difficulty 2+ DP/PT pulses Normal sensation No posterior ankle pain, negative hilario sign, no ligamental laxity Course Course Course Narrative: This is a rapid medical exam. Deferred additional HPI, ROS, PE to primary provider. 39 yo male with no known medical history here with complaints of right foot pain with radiation up to the calf after stomping heavy this morning on the ground. Will check x-rays -Eda Ventura APRN Reevaluation(s) Reevaluation #1: x-rays show no acute fracture or dislocation. Will place patient in ronen wrap and give crutches for home. reviewed rice, reviewed worrisome signs/symptoms with the patient and when to seek additional care. comfortable with discharge home. 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 No numbness, tingling or weakness of the extremity. Having pain with WB Over the right medial heel there is some tenderness and swelling Full active/passive ROM over the ankle, foot and lower leg with no difficulty 2+ DP/PT pulses Normal sensation No posterior ankle pain, negative hilario sign, no ligamental laxity Will check x-rays Differential Diagnosis Differential Diagnoses: The differential diagnosis associated with the presentation includes sprain, strain, contusion low suspicion for fracture, vascular injury or dislocation Admission/Observation Consideration of admission/observation: Escalation of care including admission/observation considered low suspicion for fracture, vascular injury or dislocation requiring advanced imaging, urgent ortho consult Independent Interpretation I performed an independent interpretation of an: Plain X-Ray Interpretation: I independently reviewed the x-ray and agree with the rad report Radiology Impression Discussion of test interpretation with radiology: I have reviewed the radiologist's reading. Radiologist Impression: Launch?Image [address] [id number] XRay Report Signed Patient: Gregorio Montoya MR#: [id number] : 1985 Acct:[id number] Age/Sex: 39 / M ADM Date: 03/27/24 Loc: HO.ED Attending Dr: Ordering Physician: Dinorah Arellano NP Date of Service: 03/27/24 Procedure(s): XR ankle RT 2V Accession Number(s): [id number] cc: Physician,None ; Dinorah Arellano NP~ EXAMINATION: X-ray right ankle X-ray right foot CLINICAL INFORMATION: Injury, pain COMPARISON: X-ray 01/17/2021 TECHNIQUE: Ankle 2 views. Foot 2 views. FINDINGS: Ankle: No visible acute fracture or dislocation. Ankle mortise is maintained. Talar dome appears intact. Bony alignment is anatomic. Foot: Alignment is anatomic. Remote healed third metatarsal shaft fracture. No visible acute fracture or malalignment. Tarsometatarsal alignment is maintained. Os peroneum. Small posterior calcaneal spur. No abnormal soft tissue calcification. XR/XR ankle RT 2V IMPRESSION: No radiographic evidence of acute fracture, malalignment or dislocation. If there are persistent symptoms, recommend follow-up imaging. Remote healed third metatarsal fracture. Tests considered The following testing was considered but not selected: low suspicion for fracture, vascular injury or dislocation requiring advanced imaging, Prescription Management I considered prescription management with: Pain Medication Procedures Orthopedic Splinting/Casting Injury #1: Side: right Lower Extremity Injury Location: ankle and foot Lower Extremity Immobilizer: Ronen wrap Other Orthopedic Equipment: crutches Discharge Plan Discharge Clinical Impression: Contusion of foot, right Patient Disposition: Home, Self-Care Instructions: Crutch Instructions (ED), Foot Contusion (ED), R.I.C.E. Treatment (ED) Additional Instructions: Rest, ice, elevation Ronen wrap and crutches for movement Motrin or tylenol for pain as needed Prescriptions: No Action clonidine HCl 0.2 mg tablet 1 tab PO BEDTIME PRN (Reason: Anxiety) fluoxetine 10 mg capsule 2 cap PO DAILY hydroxyzine HCl 25 mg tablet 1 tab PO TID PRN (Reason: anxiety) acamprosate 333 mg tablet,delayed release (DR/EC) 2 tab PO TID buprenorphine-naloxone [Suboxone] 8-2 mg film 1 strip sublingual DAILY njktxsjris-zryueupilimri-nvou [Fioricet] 50-300-40 mg capsule 1 cap PO Q8H PRN (Reason: prn headache) Qty: 12 0RF Referrals: ED Physician,Generic [Physician] - 5 days Stand Alone Forms: Work/School Release Print Language: Maltese
[2024-03-27 16:15] VITALS: BP 136/100; PULSE 89; RESP 18; TEMP 36.6; O2SAT 100
--- NOTE | 2024-03-27 16:15 | PC.NURSE ---
rt ankle juliet wrap applied, crutch training performed
== END 2024-03-27 16:15 | disposition home or self-care (01) ==
PROVIDERS: Emergency Provider Emergency Medicine
DX: S90.31XA Contusion of right foot, initial encounter (principal); S90.01XA Contusion of right ankle, initial encounter; M25.571 Pain in right ankle and joints of right foot; X58.XXXA Exposure to other specified factors, initial encounter; Y93.9 Activity, unspecified; Y92.9 Unspecified place or not applicable; Y99.8 Other external cause status
CPT/HCPCS: 73600; 73620; 99282; 99283

== ENCOUNTER 2025-01-15 16:08 | Emergency (ER) | payer SELFPAY ==
--- NOTE | ~2025-01-15 | XR_ITS ---
CLINICAL HISTORY: cough, bloody sputum 2 view chest x-ray Comparison: None Findings: Heart size is normal. Approximately 2 cm somewhat rounded opacity in left lower lung seen on PA view. Right lung is clear. No pleural effusion or pneumothorax. No acute fracture. IMPRESSION: 1. Approximately 2 cm left lower lung somewhat rounded opacity nonspecific and although could be infectious or inflammatory in etiology possibility of neoplasm not excluded. Follow-up CT chest with contrast is recommended. This document has been electronically signed by: Sari Boyer MD on 01/15/2025 17:27:59
--- NOTE | ~2025-01-15 | CT_ITS ---
CLINICAL HISTORY: hemoptysis ?mass to left lower lobe CT angiography chest with contrast. With MIP MPR Postprocessing. Comparison: None Findings: Multifocal airspace disease predominately in the left lower lobe with consolidation measuring up to 2 cm selectively. Opacities demonstrated predominantly centrilobular distribution. Differential considerations include multifocal pneumonia and small airway disease. Left hilar lymphadenopathy may be reactive with node measuring 1 cm short axis (image number 30 of series 5). No central pulmonary embolism. No aortic dissection. Imaged abdomen is unremarkable. Multilevel Schmorl's nodes, including lower thoracic vertebrae. IMPRESSION: 1. No central pulmonary embolism. 2. Airspace disease most pronounced in the left lower lobe. Differential considerations include pneumonia. Recommend attention on follow-up to ensure resolution. This document has been electronically signed by: Kyaw Cordova MD on 01/15/2025 20:19:32
[2025-01-15 16:11] VITALS: BP 125/90; PULSE 106; RESP 18; TEMP 36.3; O2SAT 97; BMI 21.0
--- NOTE | 2025-01-15 16:13 | ED_ITS ---
HPI - General Adult General Chief complaint: General Medical Stated complaint: coughing up blood Time Seen by Provider: 01/15/25 17:56 Source: patient Mode of arrival: ambulatory Limitations: no limitations History of Present Illness ED Provider: ZIGGY LUQUE PA-C HPI narrative: 39-year-old male with pmhx significant for opioid abuse on Suboxone, ETOH abuse presents to the ED today for evaluation of cough productive of bloody sputum x 1 week. He reports associated chest discomfort x months, associated shortness of breath and two episodes of bilious emesis yesterday. Patient does smoke tobacco. He has a 25 pack year history. He reports recent unintended weight loss, >20 lbs in 1 month. No history of malignancy. No history of VTE. No recent incarceration or TBI exposures. No homelessness. No known sick contacts. Denies fevers, chills, sore throat, palpitations, LE pain/swelling, abd pain, flank pain, urinary sx. Related Data Home Medications ?Medication ?Instructions ?Recorded ?Confirmed acamprosate 333 mg tablet,delayed 2 tab PO TID 04/01/21 04/01/21 release buprenorphine 8 mg-naloxone 2 mg 1 strip sublingual DAILY 04/01/21 04/01/21 sublingual film (Suboxone) clonidine HCl 0.2 mg tablet 1 tab PO BEDTIME PRN Anxiety 04/01/21 04/01/21 fluoxetine 10 mg capsule 2 cap PO DAILY 04/01/21 04/01/21 hydroxyzine HCl 25 mg tablet 1 tab PO TID PRN anxiety 04/01/21 04/01/21 Previous Rx's ?Medication ?Instructions ?Recorded khpjwggipk-vmgmmuyztkgiu-apcmzgva 1 cap PO Q8H PRN prn headache #12 03/14/23 50 mg-300 mg-40 mg capsule caps (Fioricet) amoxicillin 875 mg-potassium 1 tab PO Q12H #13 tabs 01/15/25 clavulanate 125 mg tablet azithromycin 250 mg tablet 250 mg PO DAILY 4 days #4 tabs 01/15/25 Allergies Allergy/AdvReac Type Severity Reaction Status Date / Time bee pollen [BEE STINGS] Allergy Intermediate HIVES Verified 01/15/25 16:17 shellfish derived Allergy Intermediate Hives Verified 03/27/24 15:10 Review of Systems 2 Review of Systems: Yes all other systems are reviewed and are negative PMFSH Past Medical History Attestation statement: The following information was validated with the patient. Source: old records reviewed and nursing notes reviewed Medical History Hepatitis C Social History Social History Alcohol intake: former Smoked in Last 30 Days: Yes Use of substances other than those prescribed or required for medical reasons: No Substance Use Type: Former Substance User Advance Directives: No Advance Directives Information Provided: No Physical Exam ED Vital Signs: Vital Signs - 24 hr 01/15/25 16:11 Temperature 97.4 F Pulse Rate 106 H Respiratory Rate 18 Blood Pressure 125/90 H Pulse Oximetry 97 Oxygen Delivery Method Room Air BMI result Body Mass Index 21.0 hypertensive, tachycardic General: Well appearing, in no acute distress. Skin: Warm, dry, intact. No rashes or lesions. Head: Normocephalic, atraumatic. EENT: Hearing is intact b/l. Conjunctiva clear. PERRLA. EOM intact. Moist mucous membranes.? Neck: Supple without LAD Cardiac: Chest wall symmetric. RRR Lungs: Normal respiratory effort without accessory muscle use. faint wheeze to left lower lung, otherwise clear throughout Abdomen: Soft, non-tender, non-distended. No rebound tenderness or guarding. Positive BS x4. Back: No midline spinous or paraspinal tenderness. No step off deformity. Ext: Upper and lower extremities atraumatic, without tenderness, deformity, swelling or erythema. no pitting edema. no calf tenderness. Neuro: AOx3. Normal speech. Ambulating with steady gait. Psych: Appropriate mood and affect. Responds appropriately to questions. Course Course Course Narrative: This is an RME performed by Maria Fernanda Mary CNP: Additional HPI, ROS, PE not included below will be deferred to primary provider. Patient is a 39-year-old male who presents emergency department for evaluation, states under the weather for 5 days, cough, feverish, cold and hot sweats. Intermittent SOB, intermittent mid chest pain felt while at rest. Endorses this morning having productive cough with phlegm and blood. Reports approximate 20lb unintentional weight loss over the past month. Denies recent incarceration, homelessness, known exposures to TB, history of VTE or malignancy He is an active cigarette smoker. Plan: Viral serologies, CXR, serum lab Reevaluation(s) Reevaluation #1: 1841 -- CBC without leukocytosis or left shift. Normocytic anemia, chronic when compared to priors. H&H stable and above transfusion threshold. Chemistry without acute electrolyte abnormality requiring intervention. No KILLIAN. Liver function WNL. Negative COVID, flu, RSV. Chest x-ray showing approximately 2 cm left lower lung somewhat rounded opacity, nonspecific. Question infectious v inflammatory etiology however neoplasm can not be excluded. > discussed all workup results with patient. Given abnormal chest x-ray, plan for CT angio chest to further differentiate. Patient agreeable. no complaints at this time, no pain. well appearing and hemodynamically stable. Reevaluation #2: patient's CT angiography shows what is most likely pneumonia, neoplasm not entirely excluded. I discussed this with the patient. He has no risk factors for TB. he was not been hypoxic he was mildly tachycardic to 106, he has not been tachypneic. His tachycardia resolved without intervention. he has no comorbidities. He was stable for discharge at this time. we will treat him with azithromycin and Augmentin. I encouraged him to obtain a PCP and have a repeat chest x-ray in about 6 weeks to ensure resolution of the abnormal finding. Time: 20:33 Medications Administered Discontinued Medications Generic Name Dose Route Start Last Admin Trade Name Freq PRN Reason Stop Dose Admin Amoxicillin/Clavulanate Potassium 875 mg 01/15/25 20:34 01/15/25 20:44 Amoxicillin/Potassium Clav 875 Mg Tablet PO 01/15/25 20:35 875 mg ONCE ONE Administration Azithromycin 500 mg 01/15/25 20:34 01/15/25 20:44 Azithromycin 500 Mg Tablet PO 01/15/25 20:35 500 mg ONCE ONE Administration Medical Decision Making Medical Decision Making MDM Narrative: 39-year-old male with pmhx significant for opioid abuse on Suboxone, ETOH abuse presents to the ED today for evaluation of cough productive of bloody sputum x 1 week. Tachycardic to 106, mildly hypertensive. Not hypoxic. Afebrile. He is overall well-appearing and in no acute distress. no tripoding or increased effort of breathing. faint wheeze noted to left lower lung, otherwise clear. rrr. no pitting edema, no calf tenderness. Differential diagnosis includes viral syndrome, bronchitis, pneumonia, malignancy, TB Lower suspicion for PE Screening labs, viral swabs and chest x-ray ordered from triage. Plan to review. Differential Diagnosis Differential Diagnoses: The differential diagnosis associated with the presentation includes as above. Admission/Observation not indicated. Lab Data MDM Lab Attestation statement: I reviewed the patient's lab results. as above. 01/15/25 16:42 01/15/25 16:42 Labs: Lab Results 01/15/25 Range/Units 16:42 WBC 10.1 (4.8-10.8) X10*3/uL RBC 4.16 L (4.60-5.80) X10*6/uL Hgb 12.9 L (14.0-18.0) g/dl Hct 38.4 L (42.0-52.0) % MCV 92.3 (80.0-98.0) fL MCH 31.0 (27.0-33.0) pg MCHC 33.6 (31.0-36.0) g/dl RDW 13.0 (11.0-16.0) % Plt Count 295 (160-400) X10*3/uL MPV 8.8 L (9.4-12.4) fL Immature Gran % (Auto) 0.3 (0.0-0.4) % Neut % (Auto) 60.0 (45-73) % Lymph % (Auto) 32.5 (20-40) % [place] % (Auto) 5.9 (2-11) % Eos % (Auto) 1.1 (0-4) % Baso % (Auto) 0.2 (0-2) % Lymph # (Auto) 3.3 (1.2-4.9) X10*3/uL [place] # (Auto) 0.6 (0.1-1.2) X10*3/uL Eos # (Auto) 0.1 (0.0-0.4) X10*3/uL Baso # (Auto) 0.0 (0.0-0.2) X10*3/uL Abs Immat Gran (auto) 0.03 (0.00-0.03) X10*3/uL Absolute Neuts (auto) 6.1 (2.0-8.3) x10*3/uL Absolute Nucleated RBC 0.000 (0.0-0.012) X10*3/uL Nucleated RBC % (auto) 0.0 (0.0-0.2) /100WBC Sodium 136 (135-145) mmol/L Potassium 4.0 (3.3-5.1) mmol/L Chloride 103 (96-108) mmol/L Carbon Dioxide 24 (22-29) mmol/L Anion Gap 13 (12-20) BUN 8 L (9-16) mg/dL Creatinine 0.68 (0.5-1.4) mg/dL Estim Creat Clear Calc 149.8 Estimated GFR > 60 Random Glucose 92 (60-115) mg/dL Calcium 9.5 D (8.4-10.2) mg/dL Total Bilirubin 0.4 (0.0-1.0) mg/dL AST 19 (5-37) U/L ALT 28 (0-40) U/L Alkaline Phosphatase 74 (39-117) U/L Total Creatine Kinase 60 (38-174) U/L Total Protein 8.1 H (6.5-8.0) g/dL Albumin 4.4 (3.5-5.0) g/dL Influenza Type A (PCR) NEGATIVE (Negative) Influenza Type B (PCR) NEGATIVE (Negative) RSV RNA Qual (PCR) NEGATIVE (Negative) SARS-CoV-2 RNA (RT-PCR) NEGATIVE (Negative) Independent Interpretation I performed an independent interpretation of an: Plain X-Ray Interpretation: cxr showing consolidation to left lower lobe Radiology Impression Discussion of test interpretation with radiology: I have reviewed the radiologist's reading. Radiologist Impression: Procedure(s): XR chest 2V Accession Number(s): [id number] cc: Osiris Mary CNP; Physician,None ~ ADDENDUMThis document has been electronically signed by: Sari Boyer MD on 01/15/2025 17:27:59 ADDENDUM: This report was discussed with YVROSE Maravilla on Jan 15, 2025 17:33:00 EDT. This document has been electronically signed by: Kenzie Ricci on 01/15/2025 17:33:59 Addendum Dictated By: Sari Boyer MD Addendum Signed By: <Electronically signed by Sari Boyer MD in [place]> 01/15/251733 Addendum Cosigned By: DD/ TD/TT: 01/15/25 CLINICAL HISTORY: cough, bloody sputum 2 view chest x-ray Comparison: None Findings: Heart size is normal. Approximately 2 cm somewhat rounded opacity in left lower lung seen on PA view. Right lung is clear. No pleural effusion or pneumothorax. No acute fracture. IMPRESSION: 1. Approximately 2 cm left lower lung somewhat rounded opacity nonspecific and although could be infectious or inflammatory in etiology possibility of neoplasm not excluded. Follow-up CT chest with contrast is recommended. This document has been electronically signed by: Sari Boyer MD on 01/15/2025 17:27:59 Findings: Multifocal airspace disease predominately in the left lower lobe with consolidation measuring up to 2 cm selectively. Opacities demonstrated predominantly centrilobular distribution. Differential considerations include multifocal pneumonia and small airway disease. Left hilar lymphadenopathy may be reactive with node measuring 1 cm short axis (image number 30 of series 5). No central pulmonary embolism. No aortic dissection. Imaged abdomen is unremarkable. Multilevel Schmorl's nodes, including lower thoracic vertebrae. IMPRESSION: 1. No central pulmonary embolism. 2. Airspace disease most pronounced in the left lower lobe. Differential considerations include pneumonia. Recommend attention on follow-up to ensure resolution. This document has been electronically signed by: Kyaw Cordova MD on 01/15/2025 20:19:32 External Record Review External record reviewed: Inpatient record Prescription Management I considered prescription management with: Antibiotic Chronic Conditions Patient?s care impacted by: Other (Opioid abuse, ETOH abuse, tobacco use) Social Determinants Patient?s care significantly limited by Social Determinants of Health including: Alcoholism and drug addiction in family and Other Social Determinant of Health Critical Care Time Critical Care Time Critical Care Time: No Discharge Plan Discharge Clinical Impression: Community acquired pneumonia Patient Disposition: Home, Self-Care Instructions: Community Acquired Pneumonia (ED) Additional Instructions: you had an abnormal x-ray that showed multifocal pneumonia, worse in the left lower lobe the follow-up CT scan confirms this is most likely pneumonia. You do not have any blood clots in your lungs. Take both antibiotics as prescribed I recommend that you get a primary doctor and have a repeat chest x-ray in 6 weeks to ensure resolution of the abnormal findings return for new or worsening symptoms Prescriptions: New azithromycin 250 mg tablet 250 mg PO DAILY 4 Days Qty: 4 0RF Rx Instructions: start on day 2 of therapy amoxicillin-pot clavulanate 875-125 mg tablet 1 tab PO Q12H Qty: 13 0RF No Action clonidine HCl 0.2 mg tablet 1 tab PO BEDTIME PRN (Reason: Anxiety) fluoxetine 10 mg capsule 2 cap PO DAILY hydroxyzine HCl 25 mg tablet 1 tab PO TID PRN (Reason: anxiety) acamprosate 333 mg tablet,delayed release (DR/EC) 2 tab PO TID buprenorphine-naloxone [Suboxone] 8-2 mg film 1 strip sublingual DAILY fxkxdvwslv-zlaxighdwnvoq-zauh [Fioricet] 50-300-40 mg capsule 1 cap PO Q8H PRN (Reason: prn headache) Qty: 12 0RF Interventions: ED Discharge Assessment Last Done: 01/15/25 20:52 Discharge Date/Time: 01/15/25 20:52 Print Language: Amharic
[2025-01-15 16:46] LABS: MANUAL DIFF FLAG NO
[2025-01-15 16:49] LABS: Basophils Percent Auto 0.2 % (0-2); Eosinophils Absolute Auto 0.1 X10*3/uL (0.0-0.4); Eosinophils Percent Auto 1.1 % (0-4); Hematocrit 38.4 % (42.0-52.0); Hemoglobin 12.9 g/dl (14.0-18.0); Imm Gran Abs Auto 0.03 X10*3/uL (0.00-0.03); Imm Gran Pct Auto 0.3 % (0.0-0.4); Lymphocytes Absolute Auto 3.3 X10*3/uL (1.2-4.9); Lymphocytes Percent Auto 32.5 % (20-40); Mean Corpuscular HGB Conc 33.6 g/dl (31.0-36.0); Mean Corpuscular Volume 92.3 fL (80.0-98.0); Mean Platelet Volume 8.8 fL (9.4-12.4); Monocytes Absolute Auto 0.6 X10*3/uL (0.1-1.2); Monocytes Percent Auto 5.9 % (2-11); Neutrophils Absolute Auto 6.1 x10*3/uL (2.0-8.3); Platelet Count 295 X10*3/uL (160-400); Red Blood Count 4.16 X10*6/uL (4.60-5.80); White Blood Count 10.1 X10*3/uL (4.8-10.8)
[2025-01-15 17:00] LABS: Alanine Aminotransferase 28 U/L (0-40); Albumin Level 4.4 g/dL (3.5-5.0); Alkaline Phosphatase 74 U/L (39-117); Anion Gap 13 (12-20); Aspartate Amino Transferase 19 U/L (5-37); Bilirubin Total 0.4 mg/dL (0.0-1.0); Blood Urea Nitrogen 8 mg/dL (9-16); Calcium 9.5 mg/dL (8.4-10.2); Carbon Dioxide 24 mmol/L (22-29); Chloride 103 mmol/L (96-108); Creatinine Clr Calc Pharmacy 149.8; Estimated Glomerular Filt Rate > 60; Glucose Random 92 mg/dL (60-115); Sodium 136 mmol/L (135-145); Total Protein 8.1 g/dL (6.5-8.0)
[2025-01-15 17:46] LABS: Influenza A PCR NEGATIVE (Negative); Influenza B PCR NEGATIVE (Negative); Resp Syncy Virus RNA Qual PCR NEGATIVE (Negative); SARS COV2 PCR INHOUSE NEGATIVE (Negative)
[2025-01-15 20:36] VITALS: BP 126/92; PULSE 90; RESP 16; TEMP 36.7; O2SAT 98
[2025-01-15] MEDS: Amoxicillin/Potassium Clav 875 MG TABLET PO (20:44)
[2025-01-15] MEDS: Azithromycin 500 MG TABLET PO (20:44)
[2025-01-15 20:52] VITALS: BP 126/92; PULSE 90; RESP 16; TEMP 36.7; O2SAT 98
== END 2025-01-15 20:52 | disposition home or self-care (01) ==
PROVIDERS: Nurse Practitioner Family; Physician Assistant Medical; Emergency Provider Emergency Medicine
DX: J18.9 Pneumonia, unspecified organism (principal); R05.9 Cough, unspecified; R07.89 Other chest pain; R06.02 Shortness of breath; Z03.818 Encounter for observation for suspected exposure to other biological agents ruled out
CPT/HCPCS: 0241U; 71046; 71275; 80053; 82550; 85025; 99284

== ENCOUNTER → 2025-01-15 16:18 | Outpatient (BNV) | payer SELFPAY | PROVIDERS: Visit Provider Specialist | DX: R04.2 Hemoptysis (principal); R91.8 Other nonspecific abnormal finding of lung field | CPT/HCPCS: 71046; 71275 ==